=== PATIENT | male | born 1980 | race Two or more races ===

== ENCOUNTER 2016-07-07 12:20 | Emergency (ER) | payer MEDICAID ==
[~2016-07-07] VITALS: Ht 180.3 cm; Wt 140.6 kg
[2016-07-07 13:22] LABS: Basophils # (auto) 0.2 uL; Basophils % (auto) 1.3 % (0.0-2.0); Eosinophils # (auto) 0 uL; Eosinophils % (auto) 0.3 % (0.0-7.0); Hematocrit 49.1 % (41.0-53.0); Hemoglobin 16.7 g/dL (13.5-17.5); Lymphocytes # (auto) 3.9 uL; Lymphocytes % (auto) 32.7 % (10.0-50.0); Mean Corpuscular Hemoglobin 30.5 pg (28.0-32.0); Mean Corpuscular Hgb Conc. 34.1 g/dL (32.0-36.0); Mean Corpuscular Volume 89.7 fL (80.0-100.0); Mean Platelet Volume 11.9 fL (7.4-10.4); Monocytes # (auto) 0.6 uL; Monocytes % (auto) 4.6 % (0.0-12.0); Neutrophils # (auto) 7.3 uL; Neutrophils % (auto) 61.1 % (37.0-80.0); Platelet Count (auto) 255 10^3/uL (140-450); Red Cell Distribution Width 12.5 % (11.6-16.0)
[2016-07-07 13:35] VITALS: BP 124/72
[2016-07-07] MEDS ORDERED: PANTOPRAZOLE SODIUM 40 MG/10 ML VIAL IV STA (13:36)
[2016-07-07] MEDS ORDERED: SODIUM CHLORIDE 0.9% 1,000 ML IVB ONE (13:36)
[2016-07-07] MEDS ORDERED: HYDROmorphone HCL 2 MG/ML VL IV ONE (13:45)
[2016-07-07] MEDS ORDERED: ONDANSETRON HCL 4 MG/2 ML VIAL IV ONE (13:45)
[2016-07-07 14:02] LABS: Magnesium 2.3 mg/dL (1.6-2.6)
[2016-07-07 14:15] LABS: Albumin 4.1 g/dL (3.4-5.0); BUN/Creatinine Ratio 15.3; Bilirubin, Total 0.8 mg/dL (0.2-1.0); Calcium 9.3 mg/dL (8.5-10.1); Potassium 3.9 mmol/L (3.5-5.1); Total Protein 8.6 g/dL (6.4-8.2)
[2016-07-07 15:56] LABS: Urine Bilirubin 1+ (Negative); Urine Blood Negative /uL (Negative); Urine Color Yellow (Yellow); Urine Glucose TRACE mg/dL (Normal); Urine Hyaline Cast MANY /lpf (0 - 2); Urine Ketone 1+ (Negative); Urine Mucus FEW (None Seen); Urine Nitrite Negative (Negative); Urine RBC 1 /hpf (0 - 3); Urine Squamous Epithelial Cell MOD /hpf (<5)
== END 2016-07-07 17:18 | disposition home or self-care (01) ==
LOC: ER 12:20
DX: K52.9 Noninfective gastroenteritis and colitis, unspecified (principal); E11.9 Type 2 diabetes mellitus without complications; I10 Essential (primary) hypertension; E78.5 Hyperlipidemia, unspecified; F12.10 Cannabis abuse, uncomplicated
CPT/HCPCS: 36415; 74176; 80053; 81001; 82150; 82962; 83690; 83735; 85025; 94761; 96361; 96374; 96375; 99285; C9113; J1170; J2405; J7030